=== PATIENT | female | born 1955 | race Hispanic/Latino ===

== ENCOUNTER 2021-05-25 11:00 | Outpatient (RCR) | payer MEDICARE, BC | END 2021-05-26 | LOC: PT 11:00 | PROVIDERS: ATTEND Specialist | DX: M16.11 Unilateral primary osteoarthritis, right hip (principal); M54.9 Dorsalgia, unspecified ==

== ENCOUNTER 2021-06-25 13:57 | Outpatient (RCR) | payer MEDICARE, BC | END 2021-06-26 | LOC: PT 13:57 | PROVIDERS: ATTEND Specialist | DX: M16.11 Unilateral primary osteoarthritis, right hip (principal); M54.9 Dorsalgia, unspecified | CPT/HCPCS: 97139 ==

== ENCOUNTER 2021-07-20 11:00 | Outpatient (RCR) | payer MEDICARE, BC | END 2021-07-26 | LOC: PT 11:00 | PROVIDERS: ATTEND Specialist | DX: M16.11 Unilateral primary osteoarthritis, right hip (principal); M54.9 Dorsalgia, unspecified; M62.81 Muscle weakness (generalized); R26.89 Other abnormalities of gait and mobility ==

== ENCOUNTER 2021-08-07 08:14 | Observation (INO) | payer MEDICARE, BC ==
[~2021-08-07] VITALS: Ht 170.2 cm; Wt 98.0 kg
[~2021-08-07 08:14] MED LIST: LEVOTHYROXINE75 MCG PO; ROPIVACAINE 246.25 MG, EPINEPHRINE HCL 1:1000 1ML 0.5 MG, CLONIDINE HCL 0.08 MG, KETORO... INJ ONE
[2021-08-07] MEDS ORDERED: DEXAMETHASONE SOD PHOS 10 MG/1 ML VIAL ONE (08:59)
[2021-08-07] MEDS ORDERED: GABAPENTIN 300 MG CAP ONE (08:59)
[2021-08-07] MEDS ORDERED: CELECOXIB 200 MG CAP ONE (08:59)
[2021-08-07] MEDS ORDERED: SODIUM CHLORIDE 0.9% 50ML 100 ML ONE (09:00)
[2021-08-07] MEDS ORDERED: Vancomycin IV 1,000 MG ONE (10:27)
[2021-08-07] MEDS ORDERED: SODIUM CHLORIDE 0.9% 500ML 500 ML ONE (10:27)
[2021-08-07] MEDS ORDERED: TRANEXAMIC ACID 1,000 MG/10 ML ML ONE (10:27)
[2021-08-07] MEDS ORDERED: DIPHENHYDRAMINE HCL INJ 50 MG/ML VIAL IV PRN (12:30)
[2021-08-07] MEDS ORDERED: HYDROCODONE/APAP 5MG-325MG TAB PO PRN (12:30)
[2021-08-07] MEDS: SODIUM CHLORIDE 0.9% 1000ML 1,000 ML IV SCH ×2 (12:30→22:30)
[2021-08-07] MEDS ORDERED: ACETAMINOPHEN 650 MG SUPP PR PRN (12:30)
[2021-08-07] MEDS ORDERED: ONDANSETRON HCL INJ 2MG/ML 2ML 2 MG/ML VIAL IV PRN (12:30)
[2021-08-07] MEDS ORDERED: KETOROLAC TROMETHAMINE 30 MG/ML VIAL IV PRN (12:30)
[2021-08-07] MEDS ORDERED: HYDROCODONE/APAP 7.5MG-325MG 1 EA TAB PO PRN (12:30)
[2021-08-07] MEDS ORDERED: DOCUSATE SODIUM 100 MG CAP PO PRN (12:30)
[2021-08-07 13:40] VITALS: BP 96/57
[2021-08-07 13:53] VITALS: BP 96/57
[2021-08-07 13:55] VITALS: BP 96/57
[2021-08-07] MEDS ORDERED: ACETAMINOPHEN 1000 MG/100 ML IV PRN (15:00)
[2021-08-07] MEDS ORDERED: MIDAZOLAM HCL 2 MG/2 ML VIAL ONE (15:10)
[2021-08-07 15:14] VITALS: BP 93/63
[2021-08-07] MEDS: ASPIRIN 325 MG TAB PO SCH (17:00)
[2021-08-07] MEDS: CELECOXIB 100 MG CAP PO SCH (17:00)
[2021-08-07 20:00] VITALS: BP 102/53
[2021-08-07] MEDS: Cefazolin 1 GM in SODIUM CHLORIDE 0.9% 50ML 50 ML IV SCH (20:00)
[2021-08-07] MEDS ORDERED: ZOLPIDEM TARTRATE 5 MG TAB PO PRN (21:00)
[2021-08-07] MEDS ORDERED: SODIUM CHLORIDE 0.9% 250ML 250 ML ONE (22:17)
[2021-08-08] VITALS: BP 90/53
[2021-08-08 04:00] VITALS: BP 102/58
[2021-08-08] MEDS: Cefazolin 1 GM in SODIUM CHLORIDE 0.9% 50ML 50 ML IV SCH (04:51)
[2021-08-08 05:37] LABS: HEMATOCRIT 38.7 % (34.2-44.1); HEMOGLOBIN 12.9 g/dL (12.0-16.0)
[2021-08-08] MEDS ORDERED: LEVOTHYROXINE SODIUM 75 MCG TAB PO SCH (07:30)
[2021-08-08 08:00] VITALS: BP 117/76
[2021-08-08] MEDS: SODIUM CHLORIDE 0.9% 1000ML 1,000 ML IV SCH (08:30)
[2021-08-08] MEDS ORDERED: ONDANSETRON HCL 4 MG ORAL DISINTEGRATING TAB PO PRN (08:45)
[2021-08-08] MEDS: ASPIRIN 325 MG TAB PO SCH (09:00)
[2021-08-08] MEDS: CELECOXIB 100 MG CAP PO SCH (09:00)
[2021-08-08 09:05] VITALS: BP 117/76
== END 2021-08-08 11:10 | disposition home or self-care (01) ==
LOC: OR 08:14 → PACU V 12:30 → MED/SURG 13:40
PROVIDERS: ADMIT Specialist; ATTEND Specialist
DX: M16.11 Unilateral primary osteoarthritis, right hip (principal); E03.9 Hypothyroidism, unspecified; Z86.73 Personal history of transient ischemic attack (TIA), and cerebral infarction without residual deficits; I95.9 Hypotension, unspecified; F17.200 Nicotine dependence, unspecified, uncomplicated; Z20.822 Contact with and (suspected) exposure to COVID-19; Z01.818 Encounter for other preprocedural examination
CPT/HCPCS: 27130; 36415; 72170; 85014; 85018; 86850; 86900; 97110; 97116 ×2; 97162; G0378 ×2; J0131; J0171; J0690 ×2; J1100; J1885; J2795; J3370; J7040; J7050; U0002; 86920; J2250

== ENCOUNTER → 2022-03-07 | Outpatient (CLI) | payer MEDICARE, BC ==
[~2022-03-07] MED LIST changes: -ROPIVACAINE 246.25 MG, EPINEPHRINE HCL 1:1000 1ML 0.5 MG, CLONIDINE HCL 0.08 MG, KETORO... INJ ONE
== END ==
LOC: CARD 11:27
PROVIDERS: ATTEND Internal Medicine
DX: H81.8X9 Other disorders of vestibular function, unspecified ear (principal)
CPT/HCPCS: 93880

== ENCOUNTER → 2022-08-26 | Outpatient (RCR) | payer MEDICARE, BC | LOC: PT 08-12 14:45 | PROVIDERS: ATTEND Otolaryngology | DX: H90.5 Unspecified sensorineural hearing loss (principal); H81.4 Vertigo of central origin; H81.399 Other peripheral vertigo, unspecified ear; H81.10 Benign paroxysmal vertigo, unspecified ear ==

== ENCOUNTER 2022-09-04 16:52 | Outpatient (RCR) | payer MEDICARE, BC | END 2022-09-25 | LOC: PT 16:52 | PROVIDERS: ATTEND Otolaryngology | DX: H81.10 Benign paroxysmal vertigo, unspecified ear (principal); H90.5 Unspecified sensorineural hearing loss; H81.4 Vertigo of central origin; H81.399 Other peripheral vertigo, unspecified ear ==

== ENCOUNTER → 2025-02-03 | Outpatient (REF) | payer MEDICARE, OTHER ==
[~2025-02-03] MED LIST changes: +IOPAMIDOL 370 MG/ML 100 ML INFUS..BTL INJ ONE; +METOPROLOL TARTRATE 25 MG TAB ONE; +METOPROLOL TARTRATE INJ 1 MG/ML VIAL ONE; +NITROGLYCERIN 0.4 MG SUBL ONE; +SODIUM CHLORIDE 0.9% 100 ML ONE; +SODIUM CHLORIDE 0.9% 250ML 250 ML ONE
[2025-02-03 08:56] LABS: CREATININE, SERUM 0.96 mg/dL (0.57-1.11)
== END ==
LOC: CT 07:16
PROVIDERS: ATTEND Internal Medicine Cardiovascular Disease
DX: R06.02 Shortness of breath (principal)
CPT/HCPCS: 36415; 75574; 82565; 84520; J7050 ×2; Q9967